=== PATIENT | male | born 1960 | race Caucasian/White ===

== ENCOUNTER → 2016-09-09 | Outpatient (CLI) | payer OTHER ==
--- NOTE | 2016-09-09 09:30 | MR ---
EXAMINATION TYPE: MR reggie/lspine wo con DATE OF EXAM: 09/09/2016 7:34 AM COMPARISON: MRI lumbar spine July 14, 2015. HISTORY: Cervicalgia and Lumbago per order. Headache with neck pain causing numbness and pain in bila teral arms and hands for 5-8years per patient. Chronic low back pain for years causing leg and feet n umbness and bilateral lower extremity pain per patient, right greater than left. TECHNIQUE: Multiplanar, multisequence imaging of the cervical and lumbar are performed without IV con trast. FINDINGS: C-SPINE: FINDINGS: Sagittal images of the cervical spine show the craniocervical junction to appear within nor mal limits. The cervical and upper thoracic spinal cord is normal in signal. There appears to be so me mild diminished AP diameter of cervical spinal cord at roughly C6 vertebral body level. Vertebral alignment is straightened. There is slight grade 1 retrolisthesis of C6 on C7 contributing to spinal canal effacement at this level likely causing mild cord atrophy. The vertebral body heights are [place] l. There is moderate disc space narrowing and spurring C5-C6 and C6-C7 levels. Posterior spur disc co mplex is effacing anterior thecal sac at C5-C6 level. Spondylolisthesis and disc herniation effaces a nterior thecal sac at C6-C7 level. The bone marrow signal intensity is overall slightly heterogeneous . Axial images at C2-C3 level shows left-sided uncovertebral facet arthropathy and ligamentum flavum hy pertrophy causing mild to moderate left-sided neural foraminal narrowing. Right-sided neural foramen is patent. Axial images at C3-C4 level shows central disc protrusion effacing anterior thecal sac, bilateral fili ral foramina are patent on axial image 42. Axial images at C4-C5 level show broad-based posterior disc protrusion effacing anterior thecal sac. There is posterior and marginal spurring. There is right-sided uncovertebral facet arthropathy, there is mild to moderate right-sided neural foraminal narrowing seen. Artifact degradation is noted. Axial images at C5-C6 level shows central disc protrusion effacing anterior thecal sac with marginal spurring causing mild right-sided neural foraminal narrowing. Left-sided neural foramen is patent. Axial images at C6-C7 level show spondylolisthesis and lobulated posterior disc protrusion effacing a nterior thecal sac and causing moderate to severe bilateral neural foraminal narrowing. There is flat tening of ventral surface of spinal cord confirmed. Axial images at C7-T1 level shows small central disc protrusion mildly effacing anterior thecal sac, bilateral neural foramina are patent. IMPRESSION: Loss of normal cervical curvature with multilevel degenerative changes seen most prominen t at C6-C7 level with further details as noted in body of report. L-SPINE: Sagittal images of the lumbar spine show vertebral body heights to remain satisfactory. There is slig ht grade 1 retrolisthesis of L4 on L5 and L5 on S1 redemonstrated. Multilevel disc desiccation is aga in seen with prominent in mid to lower lumbar levels. There is moderate disc space narrowing L3-L4 an d advanced disc space narrowing L4-L5 level redemonstrated. Posterior disc herniations are again seen at these levels on sagittal images. Increased signal posteriorly consistent with annular tear at the se levels is redemonstrated. The conus medullaris remain slightly low in position ending at L1-L2 dis c space. No suspicious signal or lumbosacral nerve root clumping is identified. Some heterogeneous en dplate changes lower lumbar levels is seen most prominent L5-S1 level. Mild anterior spurring lower l umbar levels is redemonstrated. Axial images show the T12-L1 level to remain within normal limits. Axial images at L1-L2 level show new or worsening mild to moderate broad disc bulge mildly effacing t he anterior thecal sac confirmed on sagittal image 8, bilateral neural foramina are patent. Axial images at the L2-L3 level show mild broad disc bulge mildly effacing the anterior thecal sac ne w or more prominent from prior study confirmed on sagittal image 8, bilateral neural foramina remain patent. Axial images at the L3-L4 level show mild facet degenerative changes bilaterally. There is broad-base d posterior disc protrusion mildly effacing the anterior thecal sac. There is mild bilateral anterior inferior neural foraminal narrowing. Findings slightly progressed from prior. Axial images at the L4-L5 level show moderate facet degenerative changes bilaterally. There is advanc ed broad disc bulge with right paracentral disc protrusion component. Spondylolisthesis is present. T here is effacement of the anterolateral thecal sac. There is moderate bilateral inferior neural phillip inal narrowing. Axial images at the L5-S1 level shows mild/moderate facet degenerative changes bilaterally. There is moderate broad-based posterior disc protrusion. Spinal canal is preserved. There is mild to moderate bilateral inferior neural foraminal narrowing. There is some ectasia to the infrarenal abdominal aorta measuring up to 2.5 cm on axial image 16 not significantly changed from prior. Mild eccentric mural thrombus remains present. IMPRESSION: Multilevel degenerative changes in the lumbar spine as detailed above with findings most severe in the lower lumbar levels and progression of degenerative findings from prior study noted.
== END | disposition home or self-care (01) ==
LOC: RADMRIMAIN 06:43
PROVIDERS: ATTEND Psychiatry & Neurology Neurology
DX: M47.812 Spondylosis without myelopathy or radiculopathy, cervical region (principal); M47.817 Spondylosis without myelopathy or radiculopathy, lumbosacral region
CPT/HCPCS: 72141; 72148